=== PATIENT | female | born 1975 | race Caucasian/White ===

== ENCOUNTER 2020-12-08 00:53 | Emergency (ER) | payer SELFPAY ==
[~2020-12-08] VITALS: Ht 157.5 cm; Wt 84.0 kg
[2020-12-08 01:06] VITALS: BP 150/92
== END 2020-12-08 02:14 | disposition left against medical advice (07) ==
LOC: ER 00:53
DX: Z53.21 Procedure and treatment not carried out due to patient leaving prior to being seen by health care provider (principal)
CPT/HCPCS: 82962